=== PATIENT | female | born 1990 | race Caucasian/White ===

== ENCOUNTER 2024-12-29 13:30 | Emergency (ER) | payer BC, MEDICAID ==
[~2024-12-29] VITALS: Ht 170.2 cm; Wt 111.0 kg
[2024-12-29 13:32] VITALS: TEMP 37.1; O2SAT 100
[2024-12-29] MEDS: LIDOCAINE HCL 1% 20ML VIAL INFIL ONE (14:46)
[2024-12-29] MEDS: ACETAMINOPHEN 500MG TABLET PO ONE (14:46)
[2024-12-29] MEDS: TETANUS, DIPHTHERIA, PERTUSSIS VAC/PF 0.5ML (>10YR OLD) IM ONE (14:47)
[2024-12-29] MEDS ORDERED: ACET-2708 MT (16:15)
[2024-12-29] MEDS ORDERED: IBUP-1455 MT (16:15)
[2024-12-29] MEDS ORDERED: CEPH500C2 MT (16:15)
[2024-12-29 16:44] VITALS: BP 109/74; PULSE 99; RESP 18; O2SAT 100
== END 2024-12-29 16:57 | disposition home or self-care (01) ==
LOC: ER 13:30
DX: S81.012A Laceration without foreign body, left knee, initial encounter (principal); J45.909 Unspecified asthma, uncomplicated; W01.0XXA Fall on same level from slipping, tripping and stumbling without subsequent striking against object, initial encounter; Y93.K1 Activity, walking an animal; Y92.89 Other specified places as the place of occurrence of the external cause; Y99.8 Other external cause status
CPT/HCPCS: 73560; 90715; 12002; 90471; 99283; J2003; Z7610

== ENCOUNTER 2024-12-31 15:27 | Emergency (ER) | payer BC, MEDICAID ==
[~2024-12-31] VITALS: Ht 170.2 cm; Wt 113.0 kg
[~2024-12-31 15:27] MED LIST: ACET-2708 MT; CEPH500C2 MT; IBUP-1455 MT
[2024-12-31 15:42] VITALS: O2SAT 98
[2024-12-31] MEDS: BACITRACIN ZINC OINT UDPKT TOP ONE (18:19)
[2024-12-31] MEDS ORDERED: BO1 TP (18:45)
[2024-12-31 19:18] VITALS: BP 133/84; PULSE 99; RESP 20; TEMP 36.8; O2SAT 98
== END 2024-12-31 19:19 | disposition home or self-care (01) ==
LOC: ER 15:27
DX: S01.01XD Laceration without foreign body of scalp, subsequent encounter (principal); J45.909 Unspecified asthma, uncomplicated; Z87.442 Personal history of urinary calculi; X58.XXXD Exposure to other specified factors, subsequent encounter
CPT/HCPCS: 99282